=== PATIENT | male | born 1945 | race Caucasian/White ===

== ENCOUNTER 2017-05-24 17:14 | Emergency (ER) | payer MEDICARE, BC ==
[2017-05-24 17:27] VITALS: BP 147/79
--- NOTE | 2017-05-24 19:29 | EDM.PDOC ---
ED HPI GENERAL MEDICAL PROBLEM - General Chief Complaint: Trauma Stated Complaint: BACK PAIN/FELL OFF HORSE Time Seen by Provider: 05/24/17 17:26 Source of Information: Reports: Patient, RN Notes Reviewed - History of Present Illness INITIAL COMMENTS - FREE TEXT/NARRATIVE: 72-year-old male that got thrown off a horse a couple of hours ago. He and family were horseback riding this afternoon. His horse swerved to dodge a tree causing him to fall off the horse. He landed primarily on the right back and right flank area. He does have a lot of pain in that area. The pain is worse with motion. He has been ambulatory. He states he did hit the back of his head at the was no LOC. Minimal headache at this time. No neck pain. No chest pain or difficulty breathing. Back Pain Score (Numeric/FACES): 7 - Related Data Allergies Allergy/AdvReac Type Severity Reaction Status Date / Time olmesartan medoxomil Allergy Difficulty Verified 05/24/17 18:15 [From Benicar] Breathing Jkoclvp-Xsy-Chi Reductase AdvReac Unknown Other Verified 05/24/17 18:15 Inhibitor Home Meds: Home Meds Allopurinol [Zyloprim] 300 mg PO DAILY 02/10/16 [History] Aspirin [Halfprin] 81 mg PO BRK 02/10/16 [History] Diltiazem HCl [Diltiazem 24Hr Cd] 240 mg PO DAILY 02/10/16 [History] Insulin Glarg,Human.Rec.Analog [LantUS Solostar] 40 units SUBCUT BEDTIME [History] Losartan Potassium [Cozaar] 100 mg PO DAILY 02/10/16 [History] metFORMIN HCl [Metformin HCl] 1,000 mg PO BID 02/10/16 [History] sulfaSALAzine [Azulfidine] 1,000 mg PO BID 02/10/16 [History] Past Medical History HEENT History: Reports: Cataract, Hard of Hearing, Impaired Vision Gastrointestinal History: Reports: GERD, Hemorrhoids, Other (See Below) Other Gastrointestinal History: Colitis Musculoskeletal History: Reports: Osteoarthritis Endocrine/Metabolic History: Reports: Diabetes, Type II - Past Surgical History Musculoskeletal Surgical History: Reports: Knee Replacement Social & Family History - Family History Family Medical History: Noncontributory - Tobacco Use Smoking Status *Q: Never Smoker Years of Tobacco use: 20 - Caffeine Use Caffeine Use: Reports: Coffee, Soda - Recreational Drug Use Recreational Drug Use: No Review of Systems - Review of Systems Review Of Systems: See Below Constitutional: Reports: No Symptoms Eyes: Reports: No Symptoms Ears: Reports: No Symptoms Nose: Reports: No Symptoms Mouth/Throat: Reports: No Symptoms Respiratory: Denies: Shortness of Breath, Pleuritic Chest Pain Cardiovascular: Denies: Chest Pain, Lightheadedness, Syncope Musculoskeletal: Reports: Back Pain, Joint Pain (He does have some discomfort in the area of the right hip). Denies: Neck Pain, Shoulder Pain, Arm Pain Skin: Reports: Erythema (Large area of erythema and superficial abrasion right back and right flank) Neurological: Reports: Difficulty Walking (Due to pain right low back, right hip ). Denies: Numbness, Tingling ED EXAM, GENERAL - Physical Exam Exam: See Below General Appearance: Alert, Moderate Distress Eye Exam: Bilateral Eye: PERRL Nose: Normal Inspection Throat/Mouth: Normal Inspection, Normal Oropharynx Head: Atraumatic, Other (No swelling or tenderness of the scalp). No: Facial Swelling Neck: Supple, Non-Tender, Full Range of Motion Respiratory/Chest: No Respiratory Distress, Lungs Clear, Normal Breath Sounds, Chest Non-Tender Cardiovascular: Regular Rate, Rhythm GI/Abdominal: Soft, Non-Tender Back Exam: Paraspinal Tenderness, Vertebral Tenderness (Right low back low back) Extremities: Normal Inspection, Normal Range of Motion, Leg Pain (There is some tenderness of the right lateral hip and pelvis) Neurological: Alert, Oriented, No Motor/Sensory Deficits Skin Exam: Warm, Dry, Erythema (Large area of erythema and superficial abrasion right flank and right low back) Course - Vital Signs Last Recorded V/S: Last Vital Signs Temp 98.5 F 05/24/17 19:45 Pulse 65 05/24/17 19:45 Resp 16 05/24/17 19:45 BP 147/79 H 05/24/17 17:22 Pulse Ox 95 05/24/17 19:45 - Orders/Labs/Meds Orders: Active Orders 24 hr Category Date Time Status Chest 1V Frontal [CR] Stat Exams 05/24/17 17:36 Taken Hip Min 2V or 3V w Pelvis Rt [CR] Stat Exams 05/24/17 17:37 Taken Lumbar Spine 2 or 3V [CR] Stat Exams 05/24/17 17:36 Taken Labs: Laboratory Tests 05/24/17 Range/Units 18:15 Urine Color Yellow (Yellow) Urine Appearance Clear (Clear) Urine pH 5.5 (5.0-8.0) Ur Specific [place] > or = 1.030 (1.005-1.030) Urine Protein 3+ H (Negative) Urine Glucose (UA) Negative (Negative) Urine Ketones 1+ H (Negative) Urine Occult Blood Negative (Negative) Urine Nitrite Negative (Negative) Urine Bilirubin 1+ H (Negative) Urine Urobilinogen 0.2 (0.2-1.0) Ur Leukocyte Esterase Negative (Negative) Urine RBC 0-5 (0-5) /hpf Urine WBC 5-10 H (0-5) /hpf Ur Epithelial Cells 5-10 H (0-5) /hpf Urine Bacteria Moderate H (FEW) /hpf Hyaline Casts 0-5 (0-5) /lpf Urine Mucus Moderate H (FEW) /hpf - Re-Assessments/Exams Free Text/Narrative Re-Assessment/Exam: 05/24/17 23:03 X-ray show no fracture Departure - Departure Time of Disposition: 19:28 Disposition: Home, Self-Care 01 Condition: Fair Clinical Impression: Contusion, back Qualifiers: Encounter type: initial encounter Laterality: right Qualified Code(s): S20.221A - Contusion of right back wall of thorax, initial encounter Fall Qualifiers: Encounter type: initial encounter Qualified Code(s): W19.XXXA - Unspecified fall, initial encounter - Discharge Information Instructions: Contusion, [id number] Referrals: PCP,Not In Area [Primary Care Provider] - Forms: ED Department Discharge Additional Instructions: Alternate ice and heat as needed for discomfort, you may alternate Tylenol and ibuprofen or Advil as needed for mild to moderate discomfort. Hydrocodone if needed for more severe pain. Do not take Tylenol and hydrocodone at the same time. Do not drive when taking hydrocodone. Follow-up clinic if not much better within 3-5 days as expected, and the ED as needed. - My Orders Last 24 Hours: My Active Orders 05/24/17 17:36 Chest 1V Frontal [CR] Stat Lumbar Spine 2 or 3V [CR] Stat 05/24/17 17:37 Hip Min 2V or 3V w Pelvis Rt [CR] Stat - Assessment/Plan Last 24 Hours: My Active Orders 05/24/17 17:36 Chest 1V Frontal [CR] Stat Lumbar Spine 2 or 3V [CR] Stat 05/24/17 17:37 Hip Min 2V or 3V w Pelvis Rt [CR] Stat
--- NOTE | 2017-05-26 17:30 | CR ---
Lumbar spine: AP, lateral and coned-down lateral views centered to the lumbosacral junction were obtained. Comparison: No previous study. Diffuse disc space narrowing is scattered throughout the lower thoracic and lumbar spine. Posterior spurring is noted at L2-L3 through L5-S1. Diffuse endplate osteophytes are seen anterior and laterally. Pedicles are intact. Visualized transverse and spinous processes are intact. No acute fracture or abnormal subluxation is seen. Diffuse atherosclerotic change is seen within a nondilated abdominal aorta. Impression: 1. Moderate diffuse degenerative change. 2. Vascular calcification. 3. Nothing acute is appreciated. Diagnostic code #3
--- NOTE | 2017-05-26 17:30 | CR ---
Pelvis and right hip: AP view of the pelvis was obtained as well as AP and frog-leg lateral views of the right hip. Comparison: No previous study. Joint spaces are maintained within both hips. Sacroiliac joints are within normal limits. No acute fracture or other bony abnormality is seen. Impression: 1. No abnormality is seen on AP pelvis or on two-view right hip exam. Diagnostic code #1
--- NOTE | 2017-05-26 17:30 | CR ---
Chest: Frontal view of the chest was obtained. Comparison: No previous study. Heart size is within normal limits. Incidental tortuous thoracic aorta is seen. Lungs are clear. Degenerative spurring is noted within the spine. Impression: 1. Nothing acute is appreciated on PA chest x-ray. Diagnostic code #2
== END 2017-05-24 19:45 | disposition home or self-care (01) ==
LOC: JD.ED 17:14
DX: S20.221A Contusion of right back wall of thorax, initial encounter (principal); K21.9 Gastro-esophageal reflux disease without esophagitis; M19.90 Unspecified osteoarthritis, unspecified site; E11.9 Type 2 diabetes mellitus without complications; Z96.659 Presence of unspecified artificial knee joint; Z88.8 Allergy status to other drugs, medicaments and biological substances; Z79.82 Long term (current) use of aspirin; Z79.4 Long term (current) use of insulin; Z79.899 Other long term (current) drug therapy; Z79.84 Long term (current) use of oral hypoglycemic drugs; V80.010A Animal-rider injured by fall from or being thrown from horse in noncollision accident, initial encounter
CPT/HCPCS: 71010; 71010-26; 72100; 72100-26; 73502-26-RT; 73502-RT; 81001; 99283; 99284